=== PATIENT | male | born 1945 | race Caucasian/White ===

== ENCOUNTER 2017-08-20 12:14 | Inpatient (IN) | payer MEDICARE ==
[~2017-08-20] VITALS: Ht 182.9 cm; Wt 75.5 kg
--- NOTE | ~2017-08-20 | WRIGHTHP ---
[place], [place] PATIENT HISTORY AND PHYSICAL EXAM NAME: BERTA DENNISON UNIT #: [id number] ROOM: 309 DOCTOR: EMANUEL OJEDA MD BIRTHDATE: [birth year] DOS: 08/21/2017 CHIEF COMPLAINT: The patient was nonverbal. HISTORY OF PRESENT ILLNESS: This is a 72-year-old white male from [facility], presenting now to [facility] senior behavioral unit with increased agitation and aggression. The patient was escorted here by police due to increased combativeness while at the home. The patient has been increasingly agitated and been making very odd bizarre comments. He states that he is seeing black children playing in the facility and that his is buried in the backyard. When attempts are made to redirect, he has kicked, hit and struck out at other residents and staff. He does have a UTI and is being treated with Cipro. He also has a significant history of Parkinson's dementia. PAST MEDICAL HISTORY: Remarkable for gait disturbance, Clark's esophagus, COPD, glaucoma, insulin-dependent diabetes, major depression, and Parkinson's disease. MENTAL STATUS: Mental status is limited due to his sedation. He did receive ____ last evening due to increased combativeness and physical aggression towards staff. DIAGNOSES: Brief psychotic disorder, rule out major depression with psychotic features. PLAN: I have discontinued his Seroquel and augmented his Namenda with Exelon. I have increased his Depakote attempting to bring the level between 60 and 80 and I have initiated Risperdal and I will increase the dose to 0.5 in the morning and 1 mg at night. I may look to start him on Nuplazid given his history of Parkinson's disease. We will also start him on Remeron 15 mg at bedtime to aid sleep. We will engage in individual and madsen milieu activity, returning back to [facility] when stable. EMANUEL OJEDA MD CM:HISPHYS:PATIENT HISTORY AND PHYSICAL EXAMINATION [id number] EMANUEL OJEDA MD 08/24/17 0651 interface
--- NOTE | ~2017-08-20 | PR ---
[place], [place] PROGRESS NOTE NAME: BERTA DENNISON UNIT #: [id number] ROOM: 309 DOCTOR: EMANUEL OJEDA MD BIRTHDATE: [birth year] DOS: 08/26/2017 INTERVAL NOTE. CHIEF COMPLAINT: "I get enough breakfast, I want more please." SUMMARY OF THE VISIT: The patient was interviewed as he sat eating his breakfast in the dining area. He engaged in reasonable conversation this morning. There was no talk about him being at the [facility] or working in any sort. He was relatively pleasant. He voiced that he felt that he needed more breakfast, although he was only about half way through. He did not exhibit any mood lability, agitation or aggression, but continues to be markedly confused. MENTAL STATUS: He is alert and oriented to person, possibly place, although doubtful, not time. Mood still seems to be somewhat labile, but more redirectable and he was much more goal directed in his speech this morning. There were no overt auditory or visual hallucinations. No hypomania or ever. There were no overt side effects from the medicines themselves. I saw no sedation, somnolence, extrapyramidal symptoms or tardive dyskinesia. He did process information slowly at times, although this seems to be improving. Short term memory remains poor. PLAN: I will increase the Vraylar from 1.5 mg at bedtime to 3 mg at bedtime to further decrease any delusion and stabilize mood. I will renew Ativan p.r.n. in case he requires any p.r.n. intervention during his stay. We will continue to engage in individual and madsen milieu activity with the ultimate plan to return to the least restrictive environment when psychiatrically stable. EMANUEL OJEDA MD CM:PNTRANS [phone] [id number] EMANUEL OJEDA MD 08/26/17918 interface
--- NOTE | ~2017-08-20 | PR ---
[place], [place] PROGRESS NOTE NAME: BERTA DENNISON UNIT #: [id number] ROOM: 309 DOCTOR: EMANUEL OJEDA MD BIRTHDATE: [birth year] DOS: 08/24/2017 CHIEF COMPLAINT: This thing in front of me shut down the whole BOP, get it off of here, I don't want it here." SUMMARY OF THE VISIT: The patient was interviewed as he was attempting to be seated in his Padmini chair and a tray put on, so he could have breakfast. He vehemently refused the tray at first despite attempts by the Physical Therapy Department and myself to discuss the need for this safety reasons. He was very delusional about the tray and stated that the electronic device that was there had shut down the entire BOP and work stoppage occurred because of it. He eventually acquiesced and allowed us to put the tray on. He continues to be unsteady on his feet and has fallen several times. He remains grossly delusional as well. MENTAL STATUS: He is alert and oriented to self. It is unclear if he realizes he is in the hospital. He is certainly not oriented to time. Mood still seems labile and affect is inappropriate. He remains grossly delusional. He, however, is much more conversant than early on in his stay and is able to engage in conversation, some of it meaningful, some of it not. Short term memory is exceedingly poor. PLAN: I will maximize out the Exelon capsules from 4.5 mg twice a day to 6 mg twice a day. Given the fact that he has Parkinson's. I do believe that the Risperdal is exacerbating some of the parkinsonian symptoms, so I will discontinue it in lieu of Vraylar 1.5 mg at bedtime. I will discuss with pharmacy the possibility of obtaining Nuplazid for him to see if we can add least while he is here and then a switch in the correction can be made off the Vraylar on to Nuplazid alone to have the least amount of negative effect on his parkinsonian symptoms. We will engage in individual and madsen milieu activity, returning back to [facility] when stable. EMANUEL OJEDA MD CM:PNTRANS [id number] EMANUEL OJEDA MD 08/25/17 0942 interface
--- NOTE | ~2017-08-20 | PR ---
[place], [place] PROGRESS NOTE NAME: BERTA DENNISON UNIT #: [id number] ROOM: 309 DOCTOR: EMANUEL OJEDA MD BIRTHDATE: [birth year] DOS: 08/27/2017 INTERVAL NOTE. CHIEF COMPLAINT: "Morning!, is my breakfast here yet?" SUMMARY OF THE VISIT: The patient was interviewed as he sat at a table with two other male patients. He was engaging in meaningful conversation with them that was pleasant and fairly bright. As I approached, he disengaged with them and engaged in conversation with me. He was much more goal oriented, much more alert than he had been previously. There is still extreme confusion and memory loss, but he was able to engage in decent conversation. Mood overall seems to be stabilizing and there is less agitation and irritability noted. MENTAL STATUS: He is alert and oriented to person, possibly place, but not time. Mood is definitely trending towards euthymia. Affect is more appropriate. There are no symptoms of ever or hypomania. There are no overt auditory or visual hallucinations. No delusions, no paranoia. Short term memory is poor. PLAN: I will renew the Ativan p.r.n. in case he requires p.r.n. intervention. I will increase the Vraylar from 3-4.5 mg at bedtime to further impact positively on mood stability and impulsivity. Engage in individual and madsen milieu activity with the plan to return to his long-term care facility when psychiatrically stable. EMANUEL OJEDA MD CM:PNTRANS 0 5 EMANUEL OJEDA MD 08/27/17825 interface
--- NOTE | ~2017-08-20 | DS ---
[place], [place] DISCHARGE SUMMARY NAME: BERTA DENNISON UNIT #: [id number] ROOM: 309 DOCTOR: EMANUEL OJEDA MD BIRTHDATE: [birth year] DOS: 08/28/2017 CHIEF COMPLAINT: The patient was nonverbal. HISTORY OF PRESENT ILLNESS: This is a 72-year-old white male from [facility], who presented to the [facility] Senior Behavioral Unit with increased agitation and aggression. The patient had to be escorted here by police due to his combative nature. He was verbally and physically aggressive to both patients and staff. He has been increasingly agitated and has been making odd and bizarre comments towards staff. He states that he sees black children playing in the facility and that his is buried in the backyard. Neither of these things are true. When attempts were made to redirect him, he has hit, kicked and struck out at others without provocation. He has not responded to redirection, nor has he responded to any type of medication intervention. Upon admission, he was found to have a UTI and has been started on Cipro. He also has a significant history of Parkinson's disease. He is admitted now to rule out organic factors, to stabilize on medication, ultimately returning back to [facility]. PAST MEDICAL HISTORY: Remarkable for Clark's esophagus, COPD, glaucoma, insulin-dependent diabetes, major depression and Parkinson's disease. SUMMARY OF HOSPITAL COURSE: The patient was admitted to the unit where his Seroquel was discontinued. Efforts were made to adjust his Depakote, also Exelon was added and it was rapidly titrated up to its maximum dose of 13.3 mg daily. It became evident during the early part of his stay that the Depakote was ineffective. He continued to have extreme mood lability and extreme agitation with physical aggression towards others. He required multiple p.r.n. interventions which were effective, however; the PRNs themselves caused him to have a great deal of somnolence the next day. For this reason, the Depakote was eventually discontinued and Vraylar 1.5 mg at bedtime was started. He had a significant and dramatic improvement with the Vraylar. His behavior leveled off. He became much more conversant and compliant. There were no further episodes of agitation or aggression. He was able to engage in meaningful conversation for the most part and able to verbalize positive plans for the future. With the Vraylar in place, titrated up to its maximum dose of 4.5 mg at bedtime, sleep and appetite normalized as well and he had improved sufficiently to be able to return back to [facility]. MENTAL STATUS AT DISCHARGE: The patient is alert and oriented to person, possibly place, but not to time. Mood does seem to be strongly trending towards euthymia. Affect is much more appropriate. There are no symptoms of ever or hypomania. There were no voiced auditory or visual hallucinations. No delusions, no paranoia. Short term memory was poor, otherwise he was intact. FINAL DIAGNOSES: Major depression, recurrent with psychotic features and dementia secondary to Parkinson's disease. PLAN: All of his prescriptions have been e scribed to his institutional pharmacy. I will follow him upon his readmission back to [facility]. [place], [place] DISCHARGE SUMMARY NAME: BERTA DENNISON UNIT #: [id number] ROOM: 309 DOCTOR: EMANUEL OJEDA MD BIRTHDATE: [birth year] EMANUEL OJEDA MD CM:JANIE [phone] [id number] EMANUEL OJEDA MD 08/28/17907 interface
--- NOTE | ~2017-08-20 | PR ---
[place], [place] PROGRESS NOTE NAME: BERTA DENNISON UNIT #: [id number] ROOM: 309 DOCTOR: EMANUEL OJEDA MD BIRTHDATE: [birth year] DOS: 08/23/2017 CHIEF COMPLAINT: "I feel a little weak." SUMMARY OF THE VISIT: The patient was interviewed first as he was walking down the hallway with the Physical Therapy Department and then later as he reclined in his Padmini chair, awaiting breakfast. He was much more alert and engaging. He did report that he is feeling weak, but denied dizziness or any other lightheaded symptoms. He was much more conversant and even spontaneous at times. Nurses report he still has episodes of extreme confusion and agitation that seems to come out of the blue. MENTAL STATUS: He is alert and oriented to person, place, but not time. Mood does still seem to be labile. Affect is at times inappropriate. There is no ever or hypomania. There are no overt auditory or visual hallucinations. No delusions, no paranoia. Short term memory is poor. PLAN: I will go ahead and increase Exelon caps from 3 mg twice a day to 4.5 mg twice a day, augmenting the Namenda. We will continue the Risperdal, continue to engage in individual and madsen milieu activities with the ultimate plan to return to the least restrictive environment when psychiatrically stable. EMANUEL OJEDA MD CM:PNTRANS [phone] EMANUEL OJEDA MD 08/24/17 0754 interface
--- NOTE | ~2017-08-20 | PR ---
[place], [place] PROGRESS NOTE NAME: BERTA DENNISON UNIT #: [id number] ROOM: 309 DOCTOR: EMANUEL OJEDA MD BIRTHDATE: [birth year] DOS: 08/22/2017 CHIEF COMPLAINT: The patient was resting and did not awake. SUMMARY OF THE VISIT: The patient was resting in his bed. He was snoring as I entered the room. Efforts to awake him were met with him just trying to swat my arm away. He did not verbalize anything. Nurses report similar behavior and that he refused his Depakote this morning and attempted to kick the nurse in the head. His behavior continues to be labile and unpredictable; however, for the second morning in the row, he is somewhat somnolent and very difficult to engage. MENTAL STATUS: It is limited due to his overall level of somnolence. PLAN: I will discontinue the Depakote Sprinkles although he refused them this morning, he is getting a larger dose at night. At the point, given the severity of his mood lability and perceived delusions, I will focus mainly on utilizing the Risperdal. I will increase the Exelon from 1.5 mg twice daily to 3 mg twice daily as I titrate upwards to achieve maximum benefit. We will monitor risk, benefit, attempt to engage in individual and madsen milieu activity, returning to his long-term care facility when stable. EMANUEL OJEDA MD CM:PNTRANS [id number] EMANUEL OJEDA MD 08/22/17 1208 interface
--- NOTE | 2017-08-20 12:15 | NUR ---
ADVISED FACILITY TO SET UP TRANSPORT FOR PT.
[2017-08-20] MEDS ORDERED: ACARBOSE50 MG PO (12:59)
[2017-08-20] MEDS ORDERED: AMITIZA24 MCG PO (13:00)
[2017-08-20] MEDS ORDERED: CLONAZEPAM0.25 MG PO (13:00)
[2017-08-20] MEDS ORDERED: JANUVIA50 MG PO (13:01)
[2017-08-20] MEDS ORDERED: NEURONTIN100 MG PO (13:01)
[2017-08-20] MEDS ORDERED: SEROQUEL100 MG PO (13:02)
[2017-08-20] MEDS ORDERED: TRAD5TAB1 PO (13:03)
[2017-08-20] MEDS ORDERED: VITAMIN D31000 UNI1 PO (13:03)
[2017-08-20] MEDS ORDERED: ZOLOFT100 MG PO (13:07)
[2017-08-20] MEDS ORDERED: CIPRO500 MG PO (13:09)
[2017-08-20] MEDS ORDERED: BETAGAN5 ML OS (13:11)
[2017-08-20] MEDS ORDERED: BETIMOL5 M1 OS (13:12)
[2017-08-20] MEDS ORDERED: CARBIDOPA-LEVO1 EAC6 PO (13:13)
[2017-08-20] MEDS ORDERED: NOVOLOG FL100 UNIT/1 SQ (13:17)
[2017-08-20] MEDS ORDERED: HALDOL5 MG/1 ML IM (13:19)
[2017-08-20] MEDS ORDERED: TYLENOL325 M1 PO (13:20)
--- NOTE | 2017-08-20 13:44 | NUR ---
CALLED FACILITY, PER FACILITY THAT CANNOT OBTAIN AN AMBULANCE TO TRANSPORT PT, THEY WILL BE TRANSPORTING HIM WITH THEIR FACILITY VAN, A MEAT HANGER AND 1 AIDE. WILL RETURN CALL ONCE PT IS LEAVING.
--- NOTE | 2017-08-20 15:39 | NUR ---
CALLED FACILITY TO INQUIRE IF PT HAS LEFT YET. PER TAMMI AT FACILITY, THEY WERE ATTEMPTING TO TRANSPORT PT AND HE BECAME COMBATIVE AND AGGRESSIVE WITH STAFF. FACILITY MEDICATING PT AND WILL SEE IF HE CALMS DOWN SO THEY CAN TRANSPORT OR THEY MAY NEED TO WAIT TIL LATER TOMORROW. WHEN AN AMBULANCE IS AVALIABLE. ADVISED FACILTY TO KEEP US UPDATED ON SITUATION.
--- NOTE | 2017-08-20 15:46 | NUR ---
PER FACILITY AN AMBULANCE WILL BE TRANSPORTING PT.
--- NOTE | 2017-08-20 17:20 | NUR ---
PT ARRIVED ON THE UNIT VIA STRETCHER AND 2 AMBULNACE MEMEBERS ACCOMPANYING.
--- NOTE | 2017-08-20 17:27 | NUR ---
DR. DEVINE NOTIFIED OF CONSULT NEEDED FOR MEDICAL MANAGEMENT.
[2017-08-20 17:29] VITALS: BP 117/57
--- NOTE | 2017-08-20 18:05 | NUR ---
BERTA DENNISON a 72 year old M admitted via stretcher from the [facility] as a voluntary BY POA admission. Arrived on unit at 1720. ALLERGIES: NKA. Vital signs are: 98.2-67-16 117/57. VERBAL CONSENT OBTAINED FROM THE POA, AT 1159 AM FOR THE following forms with stated understanding: Authorization For The Release of Medical Information, Clothing List, Consent to Voluntary Admission and Hospitalization, Consent and Release Forms/Receipt of Rights, Acknowledgement of Advance Directive Information, Behavioral Health Consent Form, and Informed Consent of Medications. Admitted under the services of Dr. LYNETTE RAMIREZ,[facility]. A search was conducted and hazardous articles were removed. Client was oriented to the unit. JESU CHAO
--- NOTE | 2017-08-20 18:05 | NUR ---
ON UNIT TO ASSESS PT.
[2017-08-20 19:03] LABS: BILIRUBIN NEGATIVE (NEGATIVE); BLOOD 3+ (NEGATIVE); CLARITY CLEAR (CLEAR); COLOR YELLOW (YELLOW); GLUCOSE NEGATIVE (NEGATIVE); KETONE TRACE (NEGATIVE); LEUKO ESTERASE NEGATIVE (NEGATIVE); NITRITE NEGATIVE (NEGATIVE)
[2017-08-20 19:12] LABS: MUCOUS TRACE
[2017-08-20 19:59] VITALS: BP 114/83
--- NOTE | 2017-08-20 21:11 | NUR ---
PT COOPERATIVE WITH MINI MENTAL EXAM, RECEPTIVE TO EDUCATION AND ASKED QUESTIONS REGARDING NEW MEDICATION DEPAKOTE. BECAME AGITATED DURING HS SNACK REPORTING TO THIS NURSE " YOU KNOW THEY ARE STEALING YOUR TOUGHTS AND USING YOUR INTELLIGNCE TO PROMOTE THEIR OWN FAME AND NOTIARITY, SOMETHING HAS TO BE DONE ABOUT THIS, THEY NEED TO BE PUT IN SENIOR LIVING". 1-1 PROVIDED, UNABLE TO PRESENT REALITY TO PATIENT. REASSURED FOR SAFETY.
--- NOTE | 2017-08-20 23:58 | NUR ---
PT CLIMBING OUT OF BED X 4 BECOMING INCREASINGLY COMBATIVE AND PARINOID OF STAFF. PLACED IN PANCHO CHAIR ACROSS FROM NURSES STATION FOR SAFETY.
--- NOTE | 2017-08-21 00:19 | NUR ---
PT INCREASINGLY AGITATED, PROVIDED TOILITING, FOOD AND FLUIDS. PT CONTINUES TO INTERMITTENTLY ESCALLATE YELLING AT NURSING STAFF TO CALL [facility] AND OR STATE POLICE. STATES THAT HE IS ALL READY INCARCERATED AND CANNOT BE CAPTURED TWICE. COMBATIVE WITH TOILITING. REFUSING TO SIT TO URINATE, HIGHLY UNSTEADY SWAYING BACK AND FORTH. UNABLE TO HIT COMMODE, URINATING ON SELF AND FLOOR. CARE PROVIDED AND REASSURANCE OF SAFETY. UNABLE TO PRESENT REALITY OR TIME AND PLACE. PT ADMINISTERED PRN ATIVAN PO AND EDUCATED ON ITS USE.
--- NOTE | 2017-08-21 01:45 | NUR ---
PT CONTINUES TO BE VERY RESTLESS BUT DECREASE IN AGITATION AND AGRESSION. PRN ATIVAN EFFECTIVE AT THIS TIME.
--- NOTE | 2017-08-21 04:03 | NUR ---
24 HR chart check completed.
[2017-08-21 07:23] LABS: BASO # 0.1 10*3/uL (0.0-0.1); BASO % 0.4 % (0.0-1.0); EOS # 0.4 10*3/uL (0.0-0.4); EOS % 2.9 % (1.0-4.0); HEMATOCRIT 42.6 % (42.0-52.0); LYMPH # 1.9 10*3/uL (1.3-4.4); LYMPH % 15.8 % (27.0-41.0); MEAN CELL VOLUME 93.2 fl (80.0-94.0); MEAN CORPUSCULAR HGB 30.6 pg (27.0-31.0); MEAN CORPUSCULAR HGB CONC 32.9 g/dl (33.0-37.0); MONO # 0.7 10*3/uL (0.1-1.0); MONO % 5.9 % (3.0-9.0); NEUT # 8.9 10*3/uL (2.3-7.9); NEUT % 74.5 % (47.0-73.0); PLATELET COUNT AUTOMATED 211 10*3/uL (130-400); RED BLOOD COUNT 4.57 10*6/uL (4.50-5.90)
[2017-08-21 07:34] LABS: ALBUMIN 3.4 gm/dl (3.1-4.5); ALKALINE PHOSPHATASE 96 U/L (45-117); BUN 25 mg/dl (7-24); CHLORIDE 103 mmol/L (98-107); CHOLESTEROL 148 mg/dL (<200); CREATININE 0.86 mg/dL (0.70-1.30); HDL CHOLESTEROL 45 mg/dl (40-60); LDL CHOLESTEROL 89 mg/dL (9-159); POTASSIUM 4.1 mmol/L (3.5-5.1); SGOT/AST 16 IU/L (3-35); SGPT/ALT 27 U/L (12-78); SODIUM 141 mmol/L (136-145); TOTAL PROTEIN 7.7 gm/dL (6.4-8.2); TRIGLYCERIDES 70 mg/dl (<150); VLDL CHOLESTEROL 14 mg/dL (6-40)
[2017-08-21 08:00] VITALS: BP 98/58
[2017-08-21 08:21] LABS: VITAMIN D, 25-HYDROXY 23.2 ng/mL (30-100)
--- NOTE | 2017-08-21 09:06 | NUR ---
OT evaluation attempted x2 (7:30 and 9am). Patient unable to participate at this time for occupational therapy evaluation. Will attempt at a later time. Lindsey Bruno OTR/L
--- NOTE | 2017-08-21 10:45 | NUR ---
Remenissing/goals/cornhole Patient present in activity room during group however patient slept in julianna chair. Per nursing patient did not eat breakfast and has been sleeping all morning.
--- NOTE | 2017-08-21 12:53 | NUR ---
PHYSICAL THERAPY Physical Therapy Evaluation completed this date. See eval document for further details. Will begin PT intervention to address the impairments of muscle weakness, decreased hamstring flexibility, decreased functional mobility I, and difficulty ambulating during [place] [address] based on chart review and PT eval. Carmelina Mai, PT
--- NOTE | 2017-08-21 15:32 | NUR ---
Kareem is compliant with medications. @ the onset of this shift Kareem was noted to exhibit excessive drowsiness. He would not awaken for breakfast and napped for much of the script manager. During PT's visit he did awaken and spoke with the therapist and was also noted to ambulate with her with minimal assist. Noted to exhibit some hesitancy in processing information and was oriented to person only. Orientation was provided to which he replied, "how long will I be here." Confusion is also noted and he asked staff if his left yet. (His is ) He exhibits difficulty with completing simple tasks and requires maximal assistance with ADL's. No aggression has been noted thus far today. Appetite is good for lunch. Alert @ this time viewing TV. He does exhibit some memory deficits, as well. Refer to [facility] flowsheet for specific monitoring. Also refer to process intervention screen for glucometer checks throughout the day.
[2017-08-21 20:00] VITALS: BP 117/61
--- NOTE | 2017-08-22 04:25 | NUR ---
24 HOUR CHART CHECK COMPLETED.
--- NOTE | 2017-08-22 04:58 | NUR ---
PATIENT IS ALERT AND ORIENTED TO PERSON WITH NOTED CONFUSION THIS SHIFT. MOOD ANXIOUS AT TIMES. STATED TO THIS NURSE DURING 1:1 THAT HE IS AT "[facility]" AND THAT "I NEED THE POLICE BECAUSE MY IS COMING TO CALE ME". UNABLE TO PRESENT REALITY TO PATIENT, REASSURED OF SAFETY. DENIES FEELINGS OF S/I, HI, AND HALLUCINATIONS. NO NOTED RESPONDING TO INTERNAL STIMULI THIS SHIFT. MEDICATION COMPLIANT WITHOUT DIFFICULTY AFTER REVIEW. SLEPT APPROX 7 HOURS THOUGHOUT THE NIGHT WITH X2 BRIEF AWAKENINGS TO USE THE RESTROOM WITH ASSISTANCE OF STAFF. NO AGGRESSION NOTED. NO PHYSICAL COMPLAINTS VOICED. NO SIGNS OR SYMPTOMS OF DISTRESS NOTED. REFER TO [facility] FLOWSHEET FOR SPECIFIC MONITORING.
[2017-08-22 08:00] VITALS: BP 90/48
--- NOTE | 2017-08-22 10:30 | NUR ---
DR NELSON ON UNIT TO SEE PATIENT, UPDATED ON MANUAL BP 90/48.
--- NOTE | 2017-08-22 11:38 | NUR ---
PATIENT IS ALERT AND ORIENT TO PERSON ONLY WITH CONFUSION; ABLE TO VOICE NEEDS. DENIES ANY HALLUCINATIONS, DELUSIONS, HI/SI OR PAIN. MOOD IS IRRITABLE AT TIMES AND REDIRECTABLE WHEN NEEDED. PATIENT ASKING ABOUT , WHO PASSED 2 YEARS AGO. REORIENTED TO PRESENT. UP IN PANCHO CHAIR. 1 PERSON ASSIST WITH ACTIVITIES OF DAILY LIVING. INCONTINENT OF BLADDER THIS FIRST THING THIS MORNING BUT HAS BEEN CONTINENT SINCE THEN. Q 15 MINUTE SAFETY CHECKS MAINTAINED. CONTINUE TO MONITOR FOR AGGRESSION AND REDIRECT NEEDED.
[2017-08-22 14:50] VITALS: BP 92/48
--- NOTE | 2017-08-22 14:51 | NUR ---
RECHECK BP MANUALLY 92/48, NO COMPLAINTS OF BEING DIZZY NOTED
--- NOTE | 2017-08-22 16:06 | NUR ---
Shift chart check completed.
[2017-08-22 20:05] VITALS: BP 116/57
--- NOTE | 2017-08-23 03:29 | NUR ---
24 HOUR CHART CHECK COMPLETED.
--- NOTE | 2017-08-23 04:08 | NUR ---
PATIENT ALERT AND ORIENTED TO PERSON AND PLACE WITH NOTED CONFUSION THIS SHIFT. MOOD IRRITABLE AT TIMES. STATED TO THIS NURSE " THIS IS A BUNCH OF BULLSH*T I WANT TO GO HOME, [facility] IS OUTSIDE WAITING ON ME RIGHT NOW". PATIENT EASILY REDIRECTED BY STAFF AND RECEPTIVE TO REALITY ORIENTATION WHEN PRESENTED. DENIES HALLUCINATIONS, SI/HI, AND DELUSIONS DURING 1:1 BUT WAS NOTED BY STAFF TO RESPOND TO VISUAL HALLUNCATIONS ON 1X OCCASION, PT WAS OBSERVED GUESTURING TOWARD THE FLOOR AND THEN BRINGING HIS HAND UP TOWARD STAFF STATING "YOU GOING TO PUFF THIS OR BUTT IT OUT". NO PHYSICAL COMPLAINTS VOICED. MEDICATION COMPLIANT WITHOUT DIFFICULTY AFTER REVIEW OF MEDICINES. SLEPT APPROX 6 HOURS INTERRUPTED THIS SHIFT WITH X4 AWAKENINGS ATTEMPTING TO CLIMB OUT OF BED TO GO FOR "A WALK" OR TO USE THE RESTROOM. PATIENT ASSISTED TO THE RESTROOM BY STAFF,INCONTENIENT CARE PROVIDED WHEN NEEDED. PATIENT PLACED IN PANCHO CHAIR NEAR NURSES STATION FOR SAFETY. PATIENT CURRENTLY LAYING BACK IN PANCHO CHAIR WITH EYES CLOSED. RESPIRATIONS EASY AND REGULAR, NO SIGNS OR SYMPTOMS OF DISTRESS NOTED. REFER TO [facility] FLOWSHEET FOR SPECIFIC MONITORING.
--- NOTE | 2017-08-23 06:53 | NUR ---
PATIENT AGITATED AND IRRITABLE THIS AM AND CURSING AT STAFF WHEN ATTEMPTING TO PROVIDE INCONTINENT CARE. PATIENT STATES "GET THE HELL OUT OF HERE, THIS IS BULLSH*T". ALSO ATTEMPTS TO PUSH STAFF WHEN PROVIDING ASSISTANCE WITH AMBULATION. MAXIMUM REDIRECTION NEEDED AT THIS TIME. CURRENTLY UP IN PANCHO CHAIR IN DINING ROOM WATCHING TV. NO SIGNS OR SYMPTOMS OF DISTRESS NOTED.
--- NOTE | 2017-08-23 08:36 | NUR ---
PT REFUSED VITAL SIGNS, MULTIPLE ATTEMPTED MADE.
--- NOTE | 2017-08-23 14:00 | NUR ---
CHAIR ALARM WENT OFF NURSE SEEN PATIENT SLIDING OUT OF CHAIR, NURSE GOT TO PATIENT AND PT SLID ONTO THE FLOOR ONTO HIS BUTTOCKS, PT C/O NO PAIN, REFUSED VITALS, REFUSED ANY TYLENOL. NOTIFIED [employer], DIRECTOR, DR. RIVERA, LEFT A MESSAGE FOR POA HIS DAUGHTER. PT IS CONFUSED AND DISORIENTED, WEAK AND UNSTEADY, HARD TO REDIRECT AT TIMES. MED COMPLIANT, YELLING AT STAFF, SWINGING AT STAFF, CURSING, STATED HE WAS GOING TO PUNCH US IN THE FACE" STATED HE WANTS TO BE PUT IN THE RIVER"
[2017-08-23 19:59] VITALS: BP 113/58
--- NOTE | 2017-08-23 20:13 | NUR ---
ATE SNACK WITHOUT ASSISTANCE. WATCHING TV WITH PEERS. PLEASENTLY CONFUSED AT THIS TIME.
--- NOTE | 2017-08-23 21:56 | NUR ---
INCONTINENT OF LARGE AMOUNT URINE AND LIQUID MEADE STOOL. CLEANED UP AND CLOTHING CHANGED. PLACED IN BED IN POSITION OF COMFORT. HOB UP 30 DEGREES. ALARMS ON
--- NOTE | 2017-08-23 23:57 | NUR ---
incontinent of large amount of urine. bed and clothing changed.
--- NOTE | 2017-08-24 00:55 | NUR ---
24 HR chart check completed.
--- NOTE | 2017-08-24 06:45 | NUR ---
SLEPT WELL PAST 2200PM
--- NOTE | 2017-08-24 07:12 | NUR ---
DR DSOUZA NOTIFIED OF POSITIVE URINE CULTURE
[2017-08-24 07:53] VITALS: BP 98/62
--- NOTE | 2017-08-24 09:55 | NUR ---
PHYSICAL THERAPY Mr Bullock seen this AM 1:1 for his therapy session, Pt was up in the day room in his gerichair with tray on and body alarm. With much verbal cueing transfer sit/stand, standing balance MOD POULTRY VETERINARIAN X 1, and just to stand. Followed by gait total 125' X 1, cueing for gait safety, balance and turns with MOD to MAX A X 1, one standing rest with this. End with act Ex to bilateral LE with cueing for each Ex of marching, LAQ's, and ankle pumps X 25 reps each and did better then i thought. Pt back up in the day room, body alarm on. MADIE RIDER CRO.
--- NOTE | 2017-08-24 10:03 | NUR ---
Erika, community relations assistant for [facility] informed SW that pt. will be treated as a new admission due to being admitted at [facility] for less than 30 days. Erika will be here today to assess pt/. for admission back to [facility], no pre-cert. required.
--- NOTE | 2017-08-24 11:19 | NUR ---
Leisure, exercise and goal group Patient present and participated in group. Patient able to state appropriate goal during discussion. Patient agitated about sitting in julianna chair and stated " Im not talking to you if you dont take me out." Patient easily calmed when AC moved to next activity. Patient actively participated in triva/ remanissing questions. Patient engaged in discussion of favorite Emmet songs with appropriate behavior. Patient reports no halucinations throughout group.
--- NOTE | 2017-08-24 13:23 | NUR ---
pt transportted to [facility] via her sister, Leah and Al.
--- NOTE | 2017-08-24 13:44 | NUR ---
Occupational Therapy evaluation completed this date on 3 with full eval to follow. Precautions include fall risk, 3N,recliner w tray table use, low complexity level 61434. Recommend OT per POC and return to SNF to enable max functional level. Thank you for this referral. Gabby Sarah OTR/L
--- NOTE | 2017-08-24 14:19 | NUR ---
Orientation,positive thoughts and Leisure Patient attended group with good participation and slight confusion. Patient oriented to person and requires cues for time and place. Patient states 'I enjoy putting together model cars." Patient provided with tube building kit and displays pleasure out of building.
--- NOTE | 2017-08-24 14:50 | NUR ---
Erika, Hospital Recruiter from [facility] came to assess pt. She states that pt. able to return to [facility] and will let Sw know if she needs to do a new pasrr or if SW at facility is able to do an update.
--- NOTE | 2017-08-24 15:41 | NUR ---
DR NELSON NOTIFED OF PT UA. PT IS RESTLESS AT TIMES, ALERT TO PERSON, CONFUSED, EASILY AGGITATED, CAN FOLLOW SIMPLE COMANDS, REFUSED MORNING MEDICATIONS, CUSSED AT THIS NURSE, REFUSED 1130 BS, INCONTINENT, AND CONTINENT, PARTICIPATED IN GROUP, EATING AND DRINKING ADEQUATELY, URINE IS TRISTIN YELLOW DR. NELSON.RIVERA AWARE. HAVING VISUAL HALLUCINATION OF SEEING A CAT, WILL YELL OUT AT TIMES CAN BE REDIRECTED.
--- NOTE | 2017-08-24 16:31 | NUR ---
PATIENT SEEN 1:1 OT THIS DATE. PATIENT IDENTIFIED BY NAME AND DATE OF . PATIENT DEMONSTRATES DECREASE AWARENSS AND DECREASE TRUNK CONTROL WITH PATIENT DEPENDENT TO REPOSITION IN PANCHO CHAIR WITH TRAY AND ALARM IN PLACE. PATIENT REQUIRED MAX A TO STRAIGHTEN SHIRT WITH RIGIDITY NOTED. PATIENT COMPLETED MINIMAL PARTICIPATION THIS DATE COMPLETING AROM INCLUDED SHOULD FLEX/EXT. HORIZONTAL ABD/ADD, AND HAND FLEX/EXT X 10 REPS. PATIENT VERBALIZED "I'M NOT DOING ANYMORE." NURSING REPORTS PATIENT CAN BECOME AGGRESSIVE. VINI GIRALDO/Ean
[2017-08-24 20:00] VITALS: BP 114/51
--- NOTE | 2017-08-24 20:14 | NUR ---
UP IN CHAIR. ATE SNACK. SAYS HE IS DEPRESSED AND NEEDS TO SEE HIS "HEAD" DOCTOR, DR DEVI IN [place]. STATES HE HAS AN APPOINTMENT TODAY. REORIENTED TO PLACE AND TIME AND HE NODDED HEAD YES. BEGAN SAYING HE IS DEPRESSED BECAUSE HIS LEFT HIM. WOULD NOT ELABORATE ON THIS. LESS AGGITATED AT THIS TIME BUT NOT INTERESTED IN TALKING FURTHER. WILL CONTINUE TO MONITOR
--- NOTE | 2017-08-24 20:41 | NUR ---
ASSISTED TO BED AND CHANGED. CLIENT NOW PARANOID THAT HE IS IN [place] AND THE DIRECT MAIL CLERK ARE COMING FOR HIM. EMOTIONAL SUPPORT PROVIDED. WEIGHT BEARING IMPROVED TONIGHT. ABLE TO STAND BETTER THAN LAST NIGHT
--- NOTE | 2017-08-25 01:55 | NUR ---
24 HR chart check completed.
--- NOTE | 2017-08-25 06:44 | NUR ---
INCONTINENT OF URINE. CLEANED UP AND DRESSED FOR THE DAY. AGAIN REFUSED TO GIVE UP DENTURES TO BE CLEANED. TAKEN TO DININGROOM AND PO FLUIDS PROVIDED
[2017-08-25 08:00] VITALS: BP 100/64
--- NOTE | 2017-08-25 08:00 | NUR ---
CALL PLACED TO PHARMACY PER REQUEST OF DR. OJEDA TO INQUIRE ABOUT NUPLAZID MEDICATION. ALEC STATES PER BILL IN PHARMACY THERE IS A DRUG COST PROGRAM WHICH REQUIRES PAPERWORK TO BE COMPLETED AND THEN THE MEDICATION WOULD BE DELIVERED TO THE HOSPITAL FROM A SPECIALTY PHARMACY. STATES BILL WILL PRINT OFF THE PAPERWORK AND SEND TO THE UNIT FOR DR. OJEDA. DR. OJEDA MADE AWARE.
--- NOTE | 2017-08-25 08:19 | NUR ---
PHYSICAL THERAPY Nursing screen for PT received. Orders for PT present. Kate Marlow,PT
--- NOTE | 2017-08-25 08:50 | NUR ---
PHYSICAL THERAPY Kareem seen this AM 1:1 for his therapy session. Pt up in the day room in his gerichair, body alarm on tray up. Pt not wanting his tray on and if i take it off do not put it back on. Transfer sit/stand, standing balance MOD A X 1. Start off gait with MOD TEST LAB TECHNICIAN X 1, 60' X 1, cueing for gait safety. Followed by gait with wheeled walker 185' X 1, with two LOB and Kareem saying that he did not fall. Pt starting to fight treatment at this time and taken back to the day room. Taking three to put Kareem's tray back in his gerichair, Dr Nance present. MADIE RIDER FAMILY DEVELOPMENT EXTENSION SPECIALIST.
--- NOTE | 2017-08-25 09:18 | NUR ---
SW rec'd message from Erika, hospital liaison who states that the W at the [facility] will be completing a new pasrr for pt. today. This SW will not need to do one.
--- NOTE | 2017-08-25 09:19 | NUR ---
PATIENT IS ALERT TO PERSON AND PLACE WITH CONFUSION AT TIMES. ABLE TO VOICE NEEDS. MOOD IS IRRITABLE. NO HALLUCINATIONS, DELUSIONS, HI/IS OR PAIN NOTED. NO RESPONSE TO INTERNAL STIMULI. MEDICATION COMPLAINT. 1 PERSON ASSIST WITH MOST ACTIVITIES OF DAILY LIVING, 2 PERSON ASSIST WITH TRANSFERS. AT RISK FOR FALL. ALL FALL PRECAUTIONS IN PLACE. Q 15 MINUTE SAFETY CHECKS MAINTAINED. CONTINENT OF BOWEL AND BLADDER. APPETITIE IS GOOD WITH ADEQUATE FLUIDS. INTERACTIVE WITH STAFF WITH CALM DEMEANOR. CONTINUE TO MONITOR FOR AGGRESSION AND REDIRECT NEEDED.
--- NOTE | 2017-08-25 10:23 | NUR ---
PATIENT SEEN 1:1 OT 25 MINUTES THIS DATE. PATIENT IDENTIFIED BY NAME AND DATE OF . PATIENT IN DAY ROOM UPON ARRIVAL. PATIENT WILLING TO PARTICIPATE OT THIS DATE. NURSING REPORTS PATIENT DEMONSTRATING FREQUENT LOSS BALANCE WITH STANDING THIS DATE. COMPLETED GROOMING TASK SEATED IN RECLINER MIN A TO COMPLETE DENTURE CARE AND VERBAL CUES SEQUENCING TASK AND OPENING CONTAINERS. PATIENT REQUIRED INCREASE TIME TO COMPLETE. PATIENT SEATED IN DAY ROOM WITH LAP TRAY AND ALARM IN PLACE. VINI RUSSO
--- NOTE | 2017-08-25 10:32 | NUR ---
Goals and Leisure 1:1 Patient attended 1:1 group. Patient discussed wanting to be stronger to be able to return home and was happy to participate in therapy this AM. Patient reports enjoying ink and line drawing. " It helps me relax." Provided patient with pens and paper where he compleated a drawing. Discussed doing this to decrease anger/frusteration when at home/senior care. Patient reports it being a good way to relax and take a break.
--- NOTE | 2017-08-25 14:29 | NUR ---
Games and triva Patient present in activity room however declined to participate. Patient would answer question at times and discuss parts of the game however did not actively participate in the game. Patient voiced no suicidal thoughts or hallucinations while in group.
--- NOTE | 2017-08-25 18:44 | NUR ---
ASSISTED PATIENT TO BATHROOM FOR TOILETING NEEDS. REFUSED TO SIT IN PANCHO CHAIR FOR SAFETY. ASSISTED PATIENT WITH ONE ASSIST TO DINNING ROOM. PATIENT MAKING DELUSIONAL COMMENTS THAT HE WAS AT WORK AND THE STAFF AND OTHER PATIENT WERE GOING TO BE FIRED. 1:1 PROVIDED AND INEFFECTIVE. SECURITY CALLED FOR ASSISTANCE. PATIENT WANTED PHONE BACK TO CALL THE BOSS. VERY ARGUEMENTATIVE WITH STAFF. SECURITY ASSISTED WITH PATIENT TO PANCHO CHAIR. PATIENT STILL CONTINUE TO BE VERBALLY AGGRESSION. PRN ATIVAN 1MG GIVEN IM AT THIS TIME.
[2017-08-25 20:12] VITALS: BP 108/53
--- NOTE | 2017-08-25 20:42 | NUR ---
ATIVAN NOT EFFECTIVE FOR AGGITATION/ANXIETY. HAS BEEN YELLING AT PEERS WALKING BY HIM, DISORIENTED TO PLACE. UNABLE TO REDIRECT. DID EAT SNACK AND TAKE MEDICATIONS BUT REMAINS RESTLESS AND AGGITATED.
--- NOTE | 2017-08-25 21:42 | NUR ---
PM CARE COMPLETED. CLIENT EXTREMELY CONFUSED. INCONTINENT OF URINE THEN TORE DIAPER APART AND THROUGH ALL OVER QUIET ROOM. TAKEN TO ROOM AND CLEANED UP. PLACED IN BED AND WILL MONITOR
--- NOTE | 2017-08-25 23:57 | NUR ---
2ND TIME SINCE CLIENT PLACED IN BED HE HAS BEEN INCONTINENT AND SATURATED HIMSELF AND BEDDING. CLEANED UP, BED CHANGE. POSITION OF COMFORT
--- NOTE | 2017-08-26 05:59 | NUR ---
SLEPT WELL AFTER MIDNIGHT.
--- NOTE | 2017-08-26 06:50 | NUR ---
CLIENT CLEANED UP AND DRESSED FOR DAY. ORAL CARE DONE. CLIENT AGAIN SATURATED IN URINE. WAS CHANGED EVERY 3 HOURS THROUGHUT NIGHT. WILL PASS ON. CURRENTLY TAKING FLUIDS AND WATCHING TV
[2017-08-26 08:00] VITALS: BP 96/54
--- NOTE | 2017-08-26 09:48 | NUR ---
PATIENT IS ALERT TO PERSON AND PLACE WITH INTERMITTANT COFUSION. DENIES ANY HALLUCINCAITONS, DELUSIONS, HI/SI OR PAIN. MOOD IS IRRITABLE AT TIMES. PATIENT 1-2 PERSON ASSIST WITH ACTIVITIES OF DAILY LIVING, 2 PERSON FOR TRANSFERS. PATIENT IN PANCHO CHAIR AND SHIFTS WEIGHT INDEPENDANTLY. MEDICATION COMPLIANT. MEAL INTAKES ARE GOOD WITH ADEQUATE FLUIDS. CONTINUE TO MONITOR FOR AGGRESSION AND REDIRECT NEEDED, MONITOR FOR HALLUCINATION AND REORIENT TO REALITY NEEDED.
--- NOTE | 2017-08-26 10:51 | NUR ---
Goals and games Patient attended group with good participation. Patient participated in leisure activities however wanted to "rest" senior living through. Patient frustered with having to be in julianna chair however easily redirected. Patient reports no hallucinations or delusions throughout group.
--- NOTE | 2017-08-26 12:54 | NUR ---
PHYSICAL THERAPY Pt seen this AM 1:1 for his therapy session and doing better today then yerterday not fighting treatment today. Transfer sit/stand standing balance MOD A X 1, Followed by gait 160' X 1, with wheeled walker and MOD TOP EXECUTIVE X 1 and back up in his gerichair. End with act Ex to bilateral LE marching, LAQ's and ankle pumps to understanding tolerance. MADIE RIDER BRAID CUTTER.
--- NOTE | 2017-08-26 13:45 | NUR ---
PATIENT HAS MOIST COUGH, RHOCHI NOTED ON INSPIRATION, MARTI STODDARD CNP ON UNIT TO SEE PATIENT AND AWARE.
[2017-08-26 15:52] VITALS: BP 148/74
[2017-08-26 20:00] VITALS: BP 118/55
--- NOTE | 2017-08-26 21:00 | NUR ---
PATIENT ALERT WITH PERIODS OF CONFUSION. ST/LT MEMORY DEFICITS. MOOD IS IRRITABLE AT TIMES. PATIENT WITH NO SI/HI. APPETITE GOOD. PATIENT CONTINENT AND INCONTINENT OF BOWEL AND BLADDER. PATIENT COOPERATIVE WITH CARE WITH NO AGGRESSION AT THIS TIME. MEDICATION COMPLIANT.
--- NOTE | 2017-08-27 03:24 | NUR ---
24 HR chart check completed.
[2017-08-27 04:23] LABS: BASO % 0.3 % (0.0-1.0); EOS # 0.5 10*3/uL (0.0-0.4); EOS % 4.2 % (1.0-4.0); HEMATOCRIT 38.5 % (42.0-52.0); HEMOGLOBIN 12.9 g/dl (14.0-18.0); LYMPH # 1.7 10*3/uL (1.3-4.4); LYMPH % 12.9 % (27.0-41.0); MEAN CELL VOLUME 91.4 fl (80.0-94.0); MEAN CORPUSCULAR HGB 30.6 pg (27.0-31.0); MEAN CORPUSCULAR HGB CONC 33.5 g/dl (33.0-37.0); MEAN PLATELET VOLUME 9.9 fl (9.6-12.3); MONO # 0.9 10*3/uL (0.1-1.0); MONO % 6.7 % (3.0-9.0); NEUT # 9.6 10*3/uL (2.3-7.9); NEUT % 75.6 % (47.0-73.0); PLATELET COUNT AUTOMATED 220 10*3/uL (130-400); RED BLOOD COUNT 4.21 10*6/uL (4.50-5.90); RED CELL DISTRI WIDTH 12.6 % (0-14.5); WHITE BLOOD COUNT 12.8 10*3/uL (4.8-10.8)
[2017-08-27 04:53] LABS: ALBUMIN 2.9 gm/dl (3.1-4.5); ALKALINE PHOSPHATASE 84 U/L (45-117); BUN 21 mg/dl (7-24); CHLORIDE 104 mmol/L (98-107); CREATININE 0.75 mg/dL (0.70-1.30); POTASSIUM 3.6 mmol/L (3.5-5.1); SGOT/AST 11 IU/L (3-35); SGPT/ALT 23 U/L (12-78); SODIUM 138 mmol/L (136-145)
[2017-08-27 04:54] LABS: TOTAL PROTEIN 6.6 gm/dL (6.4-8.2)
--- NOTE | 2017-08-27 06:10 | NUR ---
Q 15 MINUTE SAFETY CHECKS MAINTAINED. SLEPT >6 HOURS THROUGHOUT SHIFT. VOICES NO COMPLAINTS OF PAIN OR DISCOMFORT AT THIS TIME
[2017-08-27 08:07] VITALS: BP 102/54
--- NOTE | 2017-08-27 08:38 | NUR ---
08/26/17 Afternoon Group Patient was in attendence for group but refused to participate doing any type of activity. Patient watched a movie and fell asleep in his chair
--- NOTE | 2017-08-27 09:36 | NUR ---
PHYSICAL THERAPY Kareem seen this AM 1:1 for his therapy session, up in the day room and a little up-set ? Transfer sit/stand and standing balance with wheeled walker with verbal cueing for safety. Followed by gait with W/W 120' X 1, and needing cueing for gait safety and will lean to his right off and on with his gait. One sitting rest then 70' X 1, and said that he wants to quit. Pt up in the day room for his breakfast, and just up-set today. MADIE RIDER REGISTRATION REP.
--- NOTE | 2017-08-27 09:45 | NUR ---
MEME left vm for pt. dtr/poa in regards to pt. d/c tomorrow back to [facility]. MEME also left message for Erika, Recovery Collector that pt. would return back to facility tomorrow. MEME will set up d/c time and let Erika know.
--- NOTE | 2017-08-27 11:10 | NUR ---
Goals,Puzzle with music Patient was in attendence during group. Patient did not want to participate putting puzzle together. When patient was encouraged to participate patient stated "I just want sit back and listen to the music." Patient showed no signs of aggression throughout group
--- NOTE | 2017-08-27 15:08 | NUR ---
Mood is labile with Kareem alternating between a pleasant mood with appropriate conversation to periods of irritability and anger. He is noted to exhibit confusion, oriented to person only. @ times he thinks that he is in another place and time and told staff that his was "walking around with the nurses out there." He is not receptive to reality orientation. @ times he is also noted to be irrelevant in his responses and has some hesitancy. He is able to follow direction and complete simple tasks. He has required orientation @ times during times of confusion. Fall precautions continue and have been maintatined per policy. He has attempted to ambulate independently requiring frequent intervention from staff as he is a fall risk. Easily forgets his physical limitations. His appetite is good for meals and he has spent some time in the dining room today viewing television. Dr. Nance in to see him today with orders received. Refer to [facility] flowsheet for specific monitoring. Also refer to process intervention screen for specific glucometer readings throughout this day. Compliant with prescribed medications.
--- NOTE | 2017-08-27 15:23 | NUR ---
Noted to exhibit some anxiousness with irritability tree surgeon and was medicated with Vistaril 50 mg po @ 0949. Vistaril is effective.
--- NOTE | 2017-08-27 17:16 | NUR ---
Patient seated in day room eating dinner upon arrival. Will attempt to see at a later date. KRISTAL White/L
[2017-08-27 20:04] VITALS: BP 101/56
--- NOTE | 2017-08-28 05:32 | NUR ---
24 HR chart check completed.
--- NOTE | 2017-08-28 05:35 | NUR ---
PT COOPERATIVE WITH ALL ASPECTS OF CARE, NO COMBATIVE BEHAVIOR OR AGRESSIVE TOWARDS STAFF. NO HALLUCINATIONS NOTED THIS SHIFT. PLESANTLY CONFUSED AT TIMES. FREQUENT REDIRECTION REQUIRED, PT SOUNDING AND REMOVING BODY ALARM AND AMBULATING. PT AMBULATED WITH STAFF. PT MED COMPLIANT, CONSUMED HS SNACK. CONTINENT OF BOWEL AND BLADDER. PT SLEPT 8 HOURS WITH OUT INTURRUPTION CONTINUE DISCHARGE PLANNING.
[2017-08-28 07:43] VITALS: BP 102/64; BP 95/55
--- NOTE | 2017-08-28 07:43 | NUR ---
08/27/17 Afternoon-Movie Patient was in attendence for group but did not want to do any type of activity. Patient was watching the movie [employer] and [employer] 2 was coming on next. Patient wanted to finish watching movie then watch the second one. There were no issues throught movies.
[2017-08-28] MEDS ORDERED: MEMANTINE HCL10 MG PO (08:30)
[2017-08-28] MEDS ORDERED: MIRTAZAPINE15 M2 PO (08:30)
[2017-08-28] MEDS ORDERED: VRAYLAR4.5 MG PO (08:30)
[2017-08-28] MEDS ORDERED: HYDROXYZINE PAM25 M1 PO (08:30)
[2017-08-28] MEDS ORDERED: RIVASTIGMINE TAR3 M1 PO (08:30)
--- NOTE | 2017-08-28 10:18 | NUR ---
PHYSICAL THERAPY Kareem seen this morning for his therapy session. Pt was up in the day room in his wheelchair and looking better. Transfer sit/stand with verbal cueing to push off from his chair with MOD A X 1. Then gait with wheeled walker 190' X 1, MOD BLOCK BREAKER OPERATOR X 1, with cueing for gait, walker, turn safety and having a better day today. Pt back up in his wheelchair followed by act Ex to bilateral LE of marching, LAQ's and ankle pumps X 25 reps each with cueing for each Ex. MADIE RIDER TYPE CUTTER.
--- NOTE | 2017-08-28 10:48 | NUR ---
goals,Exercise, & August Trivia Patient did not attend group. Patient stated he wanted to go lay down in his room and was not coming to group
--- NOTE | 2017-08-28 11:00 | NUR ---
MARTI STODDARD CNP OF HOSPITALIST GROUP MADE AWARE OF DISCHARGE FOR TODAY SCHEDULED FOR 1PM BACK TO [facility].
--- NOTE | 2017-08-28 11:50 | NUR ---
MARTI STODDARD CNP OF HOSPITALIST GROUP HERE TO SEE PT AT THIS TIME. AWARE OF DISCHARGE FOR TODAY.
--- NOTE | 2017-08-28 12:20 | NUR ---
PT IS ALERT AND ORIENTED TO SELF, CONFUSED IN OTHER ASPECTS. ST/LT MEMORY DEFICITS NOTED. RESPIRATIONS EASY ON ROOM AIR. MOOD IS STABLE, AFFECT IS APPROPRIATE. SPEECH IS WNL AND COHERENT, ABLE TO MAKE NEEDS KNOWN WITHOUT DIFFICULTY. PT DENIES SI/HI, INTENT OR PLAN. PT DENIES HALLUCINATIONS, NO RESPONSE TO INTERNAL STIMULI NOTED. NO PARANOIA/DELUSIONS NOTED. NO AGGRESSIVE OR COMBATIVE BEHAVIORS. PT HAS BEEN CALM AND COOPERATIVE, MEDICATION COMPLIANT WITHOUT DIFFICULTY. FALLING STAR PROGRAM CONTINUES PER POLICY, PT REQUIRES FREQUENT REMINDERS TO ASK FOR ASSISTANCE WITH TRANSFERS/TOLIETING D/T HIGH FALL RISK. ALARMS ACTIVE AND AUDIBLE. PT FEEDS SELF, DISPLAYS GOOD APPETITE AND ADEQUATE FLUID INTAKE. NO DISTRESS NOTED. Q15 MIN SAFETY CHECKS MAINTAINED, REFER TO [facility] FLOWSHEET FOR SPECIFIC MONITORING.
--- NOTE | 2017-08-28 12:54 | NUR ---
NURSE TO NURSE REPORT GIVEN TO YULI AT [facility] [place], DISCHARGE INSTRUCTIONS FAXED TO FACILITY PER REQUEST.
--- NOTE | 2017-08-28 13:00 | NUR ---
CALL RECIEVED FROM [facility] STATES EMS IS CURRENTLY ON AN EMERGENCY CALL AND MUST PUSH BACK TRANSPORT TIME. STATES HOPEFULLY IT WILL BE WITHIN THE HOUR. CALL PLACED TO [facility] [place] TO MAKE AWARE.
--- NOTE | 2017-08-28 13:47 | NUR ---
PT DISCHARGED BACK TO [facility] [place] AT THIS TIME VIA [facility] WITH 2 KERSEY DEPARTMENT SUPERVISOR. DISCHARGE INSTRUCTIONS REVIEWED WITH NURSE AT FACILITY, COPIES FAXED TO NURSE PER REQUEST, COPIES MADE TO PROVIDE TO POA. ALL PERSONAL BELONGINGS SENT WITH THE PT INCLUDING LOCK BOX ITEMS.
--- NOTE | 2017-08-28 14:24 | NUR ---
PHYSICAL THERAPY CO-SIGN I approve of the Phyical Therapy notes written above. ANDREW LIGHT PT
--- NOTE | 2017-08-28 15:15 | NUR ---
OCCUPATIONAL THERAPY CO-SIGN I approve of the Occupational Therapy notes written above. YVONNE BELCHER OTR/Ean
== END 2017-08-28 13:47 | disposition home or self-care (01) | DRG 885 ==
LOC: 3N 12:14
PROVIDERS: Registered Nurse; ADMIT Psychiatry & Neurology Psychiatry
DX: F33.3 Major depressive disorder, recurrent, severe with psychotic symptoms (principal); E44.0 Moderate protein-calorie malnutrition; F02.81 Dementia in other diseases classified elsewhere, unspecified severity, with behavioral disturbance; G20 Parkinson's disease; F23 Brief psychotic disorder; N39.0 Urinary tract infection, site not specified; J44.9 Chronic obstructive pulmonary disease, unspecified; H40.9 Unspecified glaucoma; E11.9 Type 2 diabetes mellitus without complications; R26.0 Ataxic gait; K22.70 Barrett's esophagus without dysplasia; Z80.1 Family history of malignant neoplasm of trachea, bronchus and lung; Z79.2 Long term (current) use of antibiotics; Z79.4 Long term (current) use of insulin; Z79.899 Other long term (current) drug therapy; Z72.0 Tobacco use; Z68.22 Body mass index [BMI] 22.0-22.9, adult